=== PATIENT | female | born 1975 | race Asian ===

== ENCOUNTER 2020-01-24 13:19 | Emergency (ER) | payer OTHER ==
[~2020-01-24] VITALS: Ht 152.4 cm; Wt 59.0 kg
[2020-01-24 14:06] VITALS: Ht 152.4 cm; Wt 59.0 kg
[2020-01-24 15:10] VITALS: BP 131/79
[2020-01-24 15:10] LABS: BASOPHIL % 0.3 % (0-2); PLATELET COUNT 327 x10^3mcL (130-400); RED CELL DISTRIBUTION WIDTH 13.1 % (11.5-14.5)
[2020-01-24 15:20] LABS: microscopic required? YES; urine erythrocyte 1+ (NEGATIVE)
[2020-01-24 15:36] LABS: CALCIUM 8.7 mg/dL (8.5-10.1); CARBON DIOXIDE 24.9 mmol/L (21-32); CHLORIDE SERUM 102 mmol/L (98-107); CREATININE SERUM 0.8 mg/dL (0.6-1.0); GFR1 > 60 mL/min; GLUCOSE SERUM 94 mg/dL (74-106); POTASSIUM SERUM 3.3 mmol/L (3.5-5.1); SODIUM SERUM 137 mmol/L (136-145)
[2020-01-24 15:41] LABS: ALKALINE PHOSPHATASE 47 U/L (46-116); ALT/SGPT 24 U/L (14-59); AST/SGOT 18 U/L (15-37); BILIRUBIN TOTAL 0.5 mg/dL (0.20-1.00); TOTAL PROTEIN, SERUM 7.8 g/dL (6.4-8.2)
== END 2020-01-24 16:59 | disposition home or self-care (01) ==
LOC: ED 13:19
PROVIDERS: Emergency Medicine
DX: N39.0 Urinary tract infection, site not specified (principal); R10.2 Pelvic and perineal pain
CPT/HCPCS: 36415